=== PATIENT | female | born 1980 | race Caucasian/White ===

== ENCOUNTER → 2017-08-09 | Outpatient (CLI) | payer MEDICARE ==
[~2017-08-09] MED LIST: PARO20
[2017-08-11 13:56] LABS: HPV Genotype 16 Not Detected (NOTDET); HPV Genotype 18 Not Detected (NOTDET)
[2017-08-27 10:50] LABS: HPV High Risk Other Not Detected (NOTDET)
== END ==
LOC: LAB 17:50 → LAB SHORT 17:50
PROVIDERS: Nurse Practitioner Family
DX: Z01.419 Encounter for gynecological examination (general) (routine) without abnormal findings (principal)
CPT/HCPCS: 87624; G0145

== ENCOUNTER → 2024-01-16 | Outpatient (CLI) | payer MEDICARE ==
[2024-01-23 08:55] LABS: HPV HIGH RISK BY TMA Not Detected; HPV SOURCE Cervical
== END ==
LOC: LAB 14:19 → LAB SHORT 14:19
PROVIDERS: Obstetrics & Gynecology
DX: Z01.419 Encounter for gynecological examination (general) (routine) without abnormal findings (principal)
CPT/HCPCS: 87624; G0123

== ENCOUNTER 2024-04-17 06:11 | Day surgery (SDC) | payer MEDICARE ==
[~2024-04-17] VITALS: Ht 171 cm; Wt 133.4 kg
[2024-04-17] VITALS (15 sets, daily range): BP systolic 116–140; BP diastolic 66–82
[~2024-04-17 06:11] MED LIST changes: +LEVSOD150 PO; +SERT100 PO
[2024-04-17] MEDS ORDERED: Clindamycin 900mg in D5W 50ML 50 ML IV SCH (06:20)
[2024-04-17] MEDS ORDERED: Lactated Ringer's 1,000 ML IV SCH ×2 (06:20→10:30)
[2024-04-17] MEDS ORDERED: Gentamicin Sulfate 100 MG in NS 100 ML IV SCH (06:28)
[2024-04-17] MEDS ORDERED: Bupivacaine 0.5% HCl 5 MG/ML 30MLVIAL ONE (07:16)
[2024-04-17] MEDS ORDERED: Midazolam HCl 1MG / ML 2ML Vial ONE (07:21)
[2024-04-17] MEDS ORDERED: propofoL 20 ML IV ONE ×2 (07:21→07:55)
[2024-04-17] MEDS ORDERED: Rocuronium Bromide 10 MG/ML 5ML Injection IV ONE ×2 (07:22→08:35)
[2024-04-17] MEDS ORDERED: FentaNYL Citrate 50 MCG/ML 2 ML Injection ONE ×3 (07:22→10:48)
[2024-04-17] MEDS ORDERED: Lidocaine HCl 2% 20 ML MDV ONE (07:22)
[2024-04-17] MEDS ORDERED: Midazolam HCl 1MG / ML 2ML Vial IV ONE (07:25)
[2024-04-17] MEDS ORDERED: TRAZ50 PO (07:59)
[2024-04-17] MEDS ORDERED: Dexamethasone Sod Phos 10 MG/ML 1ML VIAL ONE (08:15)
[2024-04-17] MEDS ORDERED: Glycopyrrolate 0.2 MG/ML 5ML VIAL ONE (08:41)
--- NOTE | 2024-04-17 08:44 | NUR ---
04/17/24 0844 Amy Cardoza 100MG GENTAMYCIN GIVEN BY ANESTHESIA AT 0807
[2024-04-17] MEDS ORDERED: Ondansetron HCl 2 MG / ML 2ML Vial ONE (09:37)
[2024-04-17] MEDS ORDERED: Phenylephrine HCl 100 MCG/ML-NS 10MLSYR (1MG/10ML) ONE (09:46)
[2024-04-17] MEDS ORDERED: Sugammadex Sodium 200 MG/2ML SDV (100 MG/ML) ONE (10:09)
[2024-04-17] MEDS ORDERED: Ondansetron HCl 2 MG / ML 2ML Vial IV PRN (10:25)
[2024-04-17] MEDS ORDERED: Metoclopramide HCl 10 MG Tab PO PRN (10:25)
[2024-04-17] MEDS ORDERED: Naloxone HCl 0.4MG / ML 1ML Vial IV PRN (10:25)
[2024-04-17] MEDS ORDERED: DiphenhydrAMINE HCL 25 MG Cap PO PRN (10:25)
[2024-04-17] MEDS ORDERED: HYDROmorphone HCl/Pf 1MG SYR IV PRN (10:25)
[2024-04-17] MEDS ORDERED: FLU VACC TS2024-25(6MOS UP)/PF 45 MCG/0.5 ML SYRINGE IM SCH (10:25)
[2024-04-17] MEDS ORDERED: Ondansetron 4 MG TAB PO PRN (10:30)
[2024-04-17] MEDS ORDERED: Simethicone 80 MG Chew PO PRN (10:30)
[2024-04-17] MEDS ORDERED: OxyCODONE HCL 5 MG TAB PO PRN (10:30)
[2024-04-17] MEDS ORDERED: Acetaminophen 500 MG Tab PO PRN (10:30)
[2024-04-17] MEDS ORDERED: Metoclopramide HCl 5MG / ML 2ML Vial IV PRN (10:30)
[2024-04-17] MEDS ORDERED: Ketorolac Tromethamine 30mg Vial IV PRN (10:35)
[2024-04-17] MEDS ORDERED: Ketorolac Tromethamine 30mg Vial ONE (10:47)
--- NOTE | 2024-04-17 11:15 | NUR ---
TRANSFER FROM PACU TO SURGICAL FLOOR PT ARRIVED TO UNIT AT 1115 TODAY. PT A/OX4 WITH VSS. DENIES PAIN. INCISIONS 4X CDI CLOSED WITH TISSUE ADHESIVE. IVF INFUSING LR. TOLERATING WATER AND JELLO, DENIES N/V. FAMILY AT BEDSIDE. ORIENTATION TO ROOM PROVIDED. SCD'S IN PLACE. PT RESTING IN BED WITH CALL LIGHT IN REACH. IS ABLE TO MAKE NEEDS KNOWN. PLAN FOR AMBULATION AND VOID WHEN ABLE.
[2024-04-17] MEDS ORDERED: ACET500 PO (14:32)
[2024-04-17] MEDS ORDERED: OXYC5 PO (14:32)
--- NOTE | 2024-04-17 14:55 | NUR ---
DISCHARGE SUMMARY PT DISCHARGED HOME TODAY AT THIS TIME VIA WHEELCHAIR TO PRIVATE AUTO BY RN. PT BELONGINGS AND DISCHARGE INSTRUCTIONS PROVIDED TO PT PRIOR TO LEAVING UNIT. IV REMOVED, CATH INTACT. PT AMBULATING IND IN HALLWAY. TOLERATING PO INTAKE, DENIES N/V. PAIN MANAGED PER EMAR. PT VERBALIZED UNDERSTANDING OF DISCHARGE INSTRUCTIONS AND DENIED ANY CONCERNS.
[2024-04-17] MEDS ORDERED: TraZODone HCl 50 MG Tab PO SCH (21:00)
[2024-04-18] MEDS ORDERED: Levothyroxine Sodium 0.15 MG Tab PO SCH (06:00)
[2024-04-18] MEDS ORDERED: Sertraline HCl 100 MG Tab PO SCH (09:00)
== END 2024-04-17 14:46 | disposition home or self-care (01) ==
LOC: ORSCMMR 06:11 → ORD 08:00 → ORSCMMR 08:00 → SURS 11:10 → ORSCMMR 14:46
PROVIDERS: Obstetrics & Gynecology
PROC: 8E0W4CZ Robotic Assisted Procedure of Trunk Region, Percutaneous Endoscopic Approach (ICD-10-PCS; principal; 2024-04-17 07:30)
PROC: 0UB24ZZ Excision of Bilateral Ovaries, Percutaneous Endoscopic Approach (ICD-10-PCS; principal; 2024-04-17 07:30)
PROC: 0UB74ZZ Excision of Bilateral Fallopian Tubes, Percutaneous Endoscopic Approach (ICD-10-PCS; principal; 2024-04-17 07:30)
DX: N92.0 Excessive and frequent menstruation with regular cycle (principal); R93.5 Abnormal findings on diagnostic imaging of other abdominal regions, including retroperitoneum; N80.329 Endometriosis of the posterior cul-de-sac, unspecified depth; N83.202 Unspecified ovarian cyst, left side; R10.2 Pelvic and perineal pain; E03.9 Hypothyroidism, unspecified; K21.9 Gastro-esophageal reflux disease without esophagitis; D50.0 Iron deficiency anemia secondary to blood loss (chronic); E66.01 Morbid (severe) obesity due to excess calories; Z68.42 Body mass index [BMI] 45.0-49.9, adult; Z79.899 Other long term (current) drug therapy; Z87.891 Personal history of nicotine dependence
CPT/HCPCS: 86850; 86900; 86901; 88305; A9270; J1100; J1580; J1885; J2250; J2371; J2405; J2704; J3010; J7120